=== PATIENT | male | born 1950 | race Caucasian/White ===

== ENCOUNTER 2021-11-23 08:10 | Outpatient (CLI) | payer MEDICARE, BC ==
[2021-11-23] MEDS ORDERED: ISOVUE-370 76% 1 ML ONE (16:00)
== END 2021-11-23 08:11 | disposition home or self-care (01) ==
LOC: BICCT 08:10
PROVIDERS: ATTEND Student in an Organized Health Care Education/Training Program
DX: R19.09 Other intra-abdominal and pelvic swelling, mass and lump (principal); K40.90 Unilateral inguinal hernia, without obstruction or gangrene, not specified as recurrent
CPT/HCPCS: 74178; 82565

== ENCOUNTER 2021-11-29 15:14 | Outpatient (CLI) | payer MEDICARE, BC | END 2021-11-29 15:15 | disposition home or self-care (01) | LOC: BICULT 15:14 | PROVIDERS: ATTEND Internal Medicine | DX: M79.89 Other specified soft tissue disorders (principal); R60.9 Edema, unspecified; I82.412 Acute embolism and thrombosis of left femoral vein; I82.432 Acute embolism and thrombosis of left popliteal vein | CPT/HCPCS: 93970 ==

== ENCOUNTER 2022-03-12 16:56 | Outpatient (CLI) | payer MEDICARE, BC ==
[2022-03-12 17:39] LABS: #Basophils 0.1 10x3/uL (0.0-0.2); #Eosinphils 0.4 10x3/uL (0.0-0.5); #Monocytes 0.5 10x3/uL (0.0-1.1); #Neutrophils 3.5 10x3/uL (1.5-8.4); %Basophils 1.5 % (0.0-2.0); %Eosinophils 5.9 % (0.0-6.0); %Lymphocytes 28.3 % (18.0-47.0); %Monocytes 7.5 % (0.0-10.0); %Neutrophils 56.6 % (40.0-75.0); Mean Corpuscular HGB CONC 32.8 g/dL (32.0-36.0); Mean Corpuscular Hemoglobin 32.7 pg (27.0-33.0); Mean Corpuscular Volume 99.8 fl (81.2-95.1); Mean Platelet Volume 10.1 fl (7.4-10.4); Platelet Count 178 10x3/uL (150-450); RBC Distribution Width 14.6 % (11.5-14.5); Red Blood Cell (RBC) Count 4.28 10x6/uL (4.32-5.72); White Blood Cell (WBC) Count 6.1 10x3/uL (3.5-10.5)
[2022-03-12 18:09] LABS: Anion Gap 14 mmol/L (10-20); BUN (Urea Nitrogen) 21 mg/dL (8.4-25.7); Calc. Creatinine Clearance 0 mL/min (70-130); Calcium 9.3 mg/dL (7.8-10.44); Carbon Dioxide 24 mmol/L (23-31); Chloride 110 mmol/L (98-107); Estimated GFR 67; Glucose 93 mg/dL (83-110); Potassium 5.6 mmol/L (3.5-5.1); Sodium 142 mmol/L (136-145)
== END 2022-03-12 16:57 | disposition home or self-care (01) ==
LOC: LABBT 16:56
PROVIDERS: ATTEND Surgery
DX: Z01.818 Encounter for other preprocedural examination (principal); K40.90 Unilateral inguinal hernia, without obstruction or gangrene, not specified as recurrent; J98.4 Other disorders of lung; Z20.822 Contact with and (suspected) exposure to COVID-19; Z87.01 Personal history of pneumonia (recurrent)
CPT/HCPCS: 71046; 80048; 85025; 87811

== ENCOUNTER 2022-03-15 05:51 | Day surgery (SDC) | payer MEDICARE, BC ==
[2022-03-14 09:58] VITALS: BMI 21.9
[2022-03-15] MEDS ORDERED: Acetaminophen 500 MG TAB ONE (06:34)
[2022-03-15] MEDS ORDERED: Bupivacaine/Epinephrine 0.25% 30 ML VIAL ONE (06:35)
[2022-03-15] MEDS ORDERED: Sodium Chloride 0.9% 100 ML ONE (06:35)
[2022-03-15] MEDS ORDERED: CEFAZOLIN 2 GM VIAL ONE (06:35)
[2022-03-15] MEDS ORDERED: Bupivacaine PF 0.5% 30 ML VIAL ONE ×2 (06:35→06:36)
[2022-03-15] MEDS ORDERED: fentaNYL Citrate/PF 100 MCG/2 ML SYRINGE ONE (07:47)
[2022-03-15 08:43] LABS: Potassium 4.2 mmol/L (3.5-5.1)
[2022-03-15] MEDS ORDERED: PROPOFOL 200 MG/20 ML VIAL ONE (11:44)
[2022-03-15] MEDS ORDERED: Lidocaine 1% MPF 2 ML VIAL ONE (11:44)
[2022-03-15] MEDS ORDERED: Glycopyrrolate 0.2 MG/ML 5 ML SYRINGE ONE (11:44)
[2022-03-15] MEDS ORDERED: Ondansetron PF 4 MG/2 ML Vial ONE (11:44)
[2022-03-15] MEDS ORDERED: ePHEDrine 50 MG/ML VIAL ONE (11:44)
== END 2022-03-15 13:47 | disposition home or self-care (01) ==
LOC: SDC 05:51
PROVIDERS: ATTEND Surgery
PROC: 0YQ60ZZ Repair Left Inguinal Region, Open Approach (ICD-10-PCS; principal; 2022-03-15)
DX: K40.90 Unilateral inguinal hernia, without obstruction or gangrene, not specified as recurrent (principal); I48.91 Unspecified atrial fibrillation; E78.00 Pure hypercholesterolemia, unspecified; Z79.01 Long term (current) use of anticoagulants; Z79.82 Long term (current) use of aspirin; Z79.899 Other long term (current) drug therapy; Z88.5 Allergy status to narcotic agent
CPT/HCPCS: 49505; 84132; A4306; C1781; 88302; J0690; J2405; J2704; J3490; S0020

== ENCOUNTER 2023-05-09 11:39 | Day surgery (SDC) | payer MEDICARE, BC ==
[2023-05-08 12:19] VITALS: BMI 21.8
[2023-05-09] MEDS ORDERED: Magnevist 469MG/ML 20 ML VIAL ONE (13:49)
[2023-05-09] MEDS ORDERED: Lidocaine 1% PF 5 ML VIAL ONE (13:53)
[2023-05-09] MEDS ORDERED: PHENYLEPHRINE-NS 100 MCG/ML 10 ML SYRINGE ONE (13:53)
[2023-05-09] MEDS ORDERED: PROPOFOL 200 MG/20 ML VIAL ONE (13:53)
== END 2023-05-09 15:24 | disposition home or self-care (01) ==
LOC: MRI 11:39
PROVIDERS: ATTEND Psychiatry & Neurology Neurology
DX: R27.0 Ataxia, unspecified (principal); E78.00 Pure hypercholesterolemia, unspecified; H91.90 Unspecified hearing loss, unspecified ear; J44.9 Chronic obstructive pulmonary disease, unspecified; I48.0 Paroxysmal atrial fibrillation; Z98.890 Other specified postprocedural states; Z79.82 Long term (current) use of aspirin; Z79.899 Other long term (current) drug therapy; F17.210 Nicotine dependence, cigarettes, uncomplicated; Z88.5 Allergy status to narcotic agent; Z79.01 Long term (current) use of anticoagulants
CPT/HCPCS: 70553; 82565; A9579; J2704

== ENCOUNTER 2023-08-14 14:45 | Outpatient (CLI) | payer MEDICARE, BC | END 2023-08-14 14:46 | disposition home or self-care (01) | LOC: BICULT 14:45 | PROVIDERS: ATTEND Family Medicine | DX: R31.9 Hematuria, unspecified (principal) | CPT/HCPCS: 76770 ==

== ENCOUNTER 2023-12-11 13:12 | Outpatient (CLI) | payer MEDICARE, BC | END 2023-12-11 13:13 | disposition home or self-care (01) | LOC: BICRAD 13:12 | PROVIDERS: ATTEND Nurse Practitioner Family | DX: I48.91 Unspecified atrial fibrillation (principal) | CPT/HCPCS: 71046 ==